=== PATIENT | female | born 1960 | race Caucasian/White ===

== ENCOUNTER 2017-04-17 01:09 | Emergency (ER) | payer SELFPAY ==
[~2017-04-17] VITALS: Ht 152.4 cm; Wt 88.5 kg
[2017-04-17] MEDS ORDERED: LORazepam 2MG/ML-1ML VIAL IM ONE (06:30)
[2017-04-17 06:39] VITALS: BP 112/64
== END 2017-04-17 06:41 | disposition home or self-care (01) ==
LOC: ER 01:23
DX: F41.9 Anxiety disorder, unspecified (principal)
CPT/HCPCS: 96372; 99284; J2060

== ENCOUNTER 2017-04-21 07:29 | Emergency (ER) | payer OTHER ==
[~2017-04-21] VITALS: Ht 154.9 cm; Wt 81.2 kg
[2017-04-21] MEDS ORDERED: LORazepam 2MG/ML-1ML VIAL IM ONE (09:45)
[2017-04-21 10:01] VITALS: BP 133/67
[2017-04-21 10:14] LABS: Basophils # (auto) 0 uL; Basophils % (auto) 0.4 % (0.0-2.0); Eosinophils # (auto) 0.1 uL; Eosinophils % (auto) 0.7 % (0.0-7.0); Hematocrit 39.7 % (36.0-46.0); Hemoglobin 13.5 g/dL (12.2-16.2); Lymphocytes # (auto) 2.1 uL; Lymphocytes % (auto) 19.9 % (10.0-50.0); Mean Corpuscular Hemoglobin 31.5 pg (28.0-32.0); Mean Corpuscular Hgb Conc. 33.9 g/dL (32.0-36.0); Mean Corpuscular Volume 92.9 fL (80.0-100.0); Mean Platelet Volume 8.4 fL (7.4-10.4); Monocytes # (auto) 0.5 uL; Monocytes % (auto) 4.3 % (0.0-12.0); Neutrophils % (auto) 74.7 % (37.0-80.0); Platelet Count (auto) 394 10^3/uL (140-450); Red Cell Distribution Width 15.2 % (11.6-16.0); White Blood Cell 10.7 10^3/uL (4.4-10.8)
[2017-04-21 10:36] LABS: Alkaline Phosphatase 107 U/L (45-117); Anion Gap 7 (5-15); Aspartate Aminotransferase 18 U/L (15-37); BUN/Creatinine Ratio 25.5; Bilirubin, Total 0.3 mg/dL (0.2-1.0); Blood Urea Nitrogen 14 mg/dL (7-18); Calcium 9.3 mg/dL (8.5-10.1); Carbon Dioxide 28 mmol/L (21-32); Chloride 104 mmol/L (98-107); GFR African American 146 mL/min; GFR Non-African American 121 mL/min; Glucose 124 mg/dL (74-106); Magnesium 2.6 mg/dL (1.6-2.6); Sodium 139 mmol/L (136-145); Total Protein 7.8 g/dL (6.4-8.2)
== END 2017-04-21 10:26 | disposition home or self-care (01) ==
LOC: ER 07:29
DX: F41.9 Anxiety disorder, unspecified (principal)
CPT/HCPCS: 36415; 80053; 83735; 84484; 85025; 93005; 96372; 99285; J2060